=== PATIENT | male | born 1965 | race Caucasian/White ===

== ENCOUNTER 2022-12-10 18:00 | Emergency (ER) | payer OTHER ==
[~2022-12-10] VITALS: Ht 170.2 cm; Wt 82.0 kg
[2022-12-10 18:20] VITALS: BP 128/75; O2SAT 99
[2022-12-10] MEDS ORDERED: OFLO5DRO4 RIGHT EAR (19:36)
[2022-12-10 20:08] VITALS: PULSE 85; RESP 18; TEMP 98.6
== END 2022-12-10 20:11 | disposition home or self-care (01) ==
LOC: ER 18:00
DX: T16.1XXA Foreign body in right ear, initial encounter (principal); X58.XXXA Exposure to other specified factors, initial encounter; Y93.89 Activity, other specified; Y92.89 Other specified places as the place of occurrence of the external cause; Y99.8 Other external cause status
CPT/HCPCS: 69200; 99284

== ENCOUNTER 2023-04-20 11:20 | Emergency (ER) | payer OTHER ==
[~2023-04-20] VITALS: Ht 172.7 cm; Wt 80.0 kg
[~2023-04-20 11:20] MED LIST: OFLO5DRO4 RIGHT EAR
[2023-04-20 11:27] VITALS: O2SAT 98
[2023-04-20] MEDS: ACETAMINOPHEN 325MG TABLET PO ONE (11:45)
[2023-04-20] MEDS ORDERED: TOPUD PO (13:09)
[2023-04-20 13:30] VITALS: BP 133/81; PULSE 68; RESP 16; TEMP 98.2
== END 2023-04-20 13:31 | disposition home or self-care (01) ==
LOC: ER 11:20
DX: M54.9 Dorsalgia, unspecified (principal); V98.8XXA Other specified transport accidents, initial encounter; Y93.89 Activity, other specified; Y92.89 Other specified places as the place of occurrence of the external cause; Y99.8 Other external cause status
CPT/HCPCS: 74176; 99284

== ENCOUNTER 2023-12-28 16:46 | Emergency (ER) | payer OTHER ==
[~2023-12-28] VITALS: Ht 177.8 cm; Wt 88.0 kg
[~2023-12-28 16:46] MED LIST changes: +TOPUD PO
[2023-12-28 17:17] VITALS: TEMP 99; O2SAT 100
[2023-12-28] MEDS: ACETAMINOPHEN 325MG TABLET PO ONE (18:30)
[2023-12-28 22:10] VITALS: BP 152/74; PULSE 62; RESP 16; O2SAT 98
== END 2023-12-28 22:21 | disposition home or self-care (01) ==
LOC: ER 16:46
DX: S49.91XA Unspecified injury of right shoulder and upper arm, initial encounter (principal); V00.141A Fall from scooter (nonmotorized), initial encounter; Y93.9 Activity, unspecified; Y92.89 Other specified places as the place of occurrence of the external cause; Y99.8 Other external cause status
CPT/HCPCS: 29105; 73030; 99284; A4565

== ENCOUNTER 2024-11-23 19:50 | Emergency (ER) | payer OTHER ==
[~2024-11-23] VITALS: Ht 172.7 cm; Wt 82.0 kg
[2024-11-23 19:56] VITALS: O2SAT 97
[2024-11-23] MEDS: ACETAMINOPHEN 500MG TABLET PO ONE (21:50)
[2024-11-23] MEDS ORDERED: IBUP-1455 MT (23:06)
[2024-11-23 23:15] VITALS: BP 117/68; PULSE 83; RESP 16; TEMP 36.9; O2SAT 97
== END 2024-11-23 23:17 | disposition home or self-care (01) ==
LOC: ER 19:50
DX: S20.219A Contusion of unspecified front wall of thorax, initial encounter (principal); S20.229A Contusion of unspecified back wall of thorax, initial encounter; R51.9 Headache, unspecified; W19.XXXA Unspecified fall, initial encounter; Y93.89 Activity, other specified; Y92.89 Other specified places as the place of occurrence of the external cause; Y99.8 Other external cause status
CPT/HCPCS: 71111; 72128; 99284

== ENCOUNTER 2025-01-16 03:37 | Emergency (ER) | payer OTHER ==
[~2025-01-16] VITALS: Ht 172.7 cm; Wt 79.7 kg
[~2025-01-16 03:37] MED LIST changes: +IBUP-1455 MT
[2025-01-16 03:43] VITALS: O2SAT 99
[2025-01-16 07:23] VITALS: BP 136/71; PULSE 58; RESP 18; TEMP 36.9; O2SAT 100
== END 2025-01-16 07:25 | disposition home or self-care (01) ==
LOC: ER 03:37
DX: K08.89 Other specified disorders of teeth and supporting structures (principal); Z79.899 Other long term (current) drug therapy
CPT/HCPCS: 99282